=== PATIENT | female | born 1980 | race Caucasian/White ===

== ENCOUNTER → 2024-05-12 11:57 | Outpatient (BNVA) | payer OTHER, SELFPAY | PROVIDERS: PCP Registered Nurse; Visit Provider Registered Nurse | DX: Z13.6 Encounter for screening for cardiovascular disorders (principal); R10.9 Unspecified abdominal pain | CPT/HCPCS: 80053; 80061; 85025; 86003; 86008 ==

== ENCOUNTER 2024-05-30 10:20 | Outpatient (CLI) | payer OTHER, SELFPAY ==
--- NOTE | 2024-05-30 11:00 | US_ITS ---
WS: [id number] RIGHT UPPER QUADRANT ULTRASOUND HISTORY: K81.9 - Cholecystitis, unspecified COMPARISON: None available. Liver: 14.8 cm in length. Normal size liver and echogenicity. No bile duct dilatation or mass. Portal Vein: Normal hepatopetal flow with monophasic waveform. Gallbladder: Normally distended gallbladder with no stones or wall thickening. CBD: 0.4 cm Pancreas: Poorly visualized due to bowel gas. Right kidney: 10.8 cm in length. Normal size and echogenicity. No hydronephrosis or mass. Aorta and IVC: Unremarkable abdominal aorta and IVC. No ascites. US/US gall bladder [id number] IMPRESSION: 1. Normal gallbladder. No cholelithiasis or wall thickening. 2. Normal common bile duct.
== END 2024-05-30 10:21 | disposition home or self-care (01) ==
LOC: RAD 10:21
PROVIDERS: PCP Registered Nurse; Visit Provider Registered Nurse
DX: K81.9 Cholecystitis, unspecified (principal)
CPT/HCPCS: 76705

== ENCOUNTER 2024-06-13 05:41 | Outpatient (CLI) | payer OTHER, SELFPAY ==
--- NOTE | 2024-06-13 06:00 | NM_ITS ---
WS: [id number] NUCLEAR MEDICINE HIDA SCAN WITH GALLBLADDER EJECTION FRACTION HISTORY: K82.8 - Other specified diseases of gallbladder COMPARISON: Gallbladder ultrasound 05/30/2024 TECHNIQUE: The patient was intravenously injected with 8.1 mCi of TC99m Mebrofenin. Immediate imaging over the right upper quadrant was followed by 5 minute image and additional images for a total of 60 minutes. Normal uptake of radiotracer throughout the liver. Activity identified in the gallbladder at 10 minutes and well distended by 60 minutes. Activity in the proximal small bowel was not evident at 60 minutes. During the gallbladder ejection f raction radionuclide is noted in the small bowel. Good washout of the radiotracer from the liver by 6 0 minutes. The patient then drank 8 ounces of Ensure Plus. Ejection fraction at 60 minutes was 31%. Normal GB ej ection fraction is 35-75%. Post fatty meal symptoms: None. NM/NM hepatobiliary w phar* [id number] IMPRESSION: 1. Normal filling of the gallbladder. Little radionuclide is noted in the smal l bowel at 60 minutes but there is radionuclide during the gallbladder ejection portion of the exam. 2. Abnormally low gallbladder ejection fraction. Gallbladder dyskinesia/chroni c cholecystitis is likely. Less likely due to obstruction of the common bile du ct. Common bile duct appeared normal on the prior ultrasound. Recommend surgical evaluation for possible cholecystectomy.
== END 2024-06-13 05:42 | disposition home or self-care (01) ==
LOC: RAD 05:42
PROVIDERS: PCP Registered Nurse; Visit Provider Registered Nurse
DX: K82.8 Other specified diseases of gallbladder (principal)
CPT/HCPCS: 78227; A9537

== ENCOUNTER 2024-06-30 08:30 | Day surgery (SDC) | payer OTHER, SELFPAY ==
[2024-06-30] VITALS (11 sets, daily range): BP systolic 106–162; BP diastolic 61–88; PULSE 79–95; RESP 13–20; TEMP 35.9–36.6; O2SAT 94–100; BMI 43.0
[2024-06-30 09:09] LABS: OR HCG Qualitative Urine Negative (Negative)
--- NOTE | 2024-06-30 09:13 | P.HPUD_ITS ---
Surgery/Procedure H&P Update DATE OF PROCEDURE: June 30, 2024 DATE H&P PERFORMED: 06/18/24 H&P UPDATE INFORMATION: I have reviewed H&P completed within last 30 days, I have examined patient prior to procedure, No changes to prior documentation and H&P is in [facility] [place] EMR on date indicated PLANNED PROCEDURE: Operation Date: 06/30/24 10:45 Proposed Procedures p lap possible open cholecystectomy 26729, K82.9(Not Applicable) - Terry Acuna MD
[2024-06-30] MEDS: scopolamine 1.5 Patch 1 PATCH TRANSDERMA (09:22)
[2024-06-30] MEDS: sodium chloride 0.9% 1,000 ML 30 ML IV (09:28)
--- NOTE | 2024-06-30 11:32 | ANES.PREANE2 ---
Pre-Anesthetic Assessment Height/Weight: Height 5 ft 6 in Weight 267 lb Temp Pulse Resp BP Pulse Ox O2 Del Method 97.8 F 95 16 136/88 98 Room Air 06/30/24 09:11 06/30/24 09:11 06/30/24 09:11 06/30/24 09:11 06/30/24 09:11 06/30/24 09:11 Preop Diagnosis: Chronic cholecystitis Operation Date: 06/30/24 10:45 Proposed Procedures p lap possible open cholecystectomy 92093, K82.9(Not Applicable) - Terry Acuna MD Was Beta Brian taken within 24 hours: N/A Was Clonidine taken within 24 hours: N/A Last intake: Intake Last Liquid Date 06/29/24 Last Liquid Time 20:00 Last Solid Date 06/29/24 Last Solid Time 16:00 Social No alcohol and No tobacco Exam alert, oriented x 3, clear to auscultation bilaterally and regular rate & rhythm Airway Submandibular: within normal limits Cervical ROM: within normal limits Mallampati: Class I Dentition: full Comments: Comments: Large overbite Anesthetic Plan ASA status: 3 Anesthesia: General Other: Patient states that she nauseous after a surgery when she she was 11 years old NPO since yesterday BMI 43 History of hypertension on lisinopril?HCTZ Denies any pulmonary issues METs greater than 4 Labs reviewed from 05/12/2024 and acceptable for procedure Plan for GETA Medications/Allergies Home Medications Medication Instructions Recorded Confirmed Last Taken Type lisinopril 10 1 tab PO DAILY 06/30/24 06/30/24 06/25/24 History mg-hydrochlorothiazide 12.5 mg tablet Allergies Allergy/AdvReac Type Severity Reaction Status Date / Time No Known Allergies Allergy Verified 06/30/24 09:06 Current Medications Generic Name Dose Route Start Last Admin Trade Name Freq PRN Reason Stop Dose Admin Sodium Chloride 1,000 mls @ 30 mls/hr 06/30/24 09:00 06/30/24 09:28 Sodium Chloride 0.9% IV 07/01/24 08:59 30 mls/hr .Q24H LOUIS Administration PFSH Anesthesia Medical History (Updated 06/13/24 @ 15:12 by KHADIJAH Marie) Essential hypertension Social History (Reviewed 05/12/24 @ 10:06 by JOHN Carr Smoking and tobacco/nicotine status: never used tobacco/nicotine Alcohol intake: never Substance/Drug Use: never Adopted: No Caregiver/support person: No Lives independently: No service: No Current occupational status: employed Sexually active: Yes Current gender identity: Female Data Anesthesia Cardiac Studies: No Data to Display
[2024-06-30] MEDS: ceFAZolin 3,000 MG in sodium chloride 0.9% (plus) 100 ML 200 MG IV (12:22)
[2024-06-30] MEDS: BUPivacaine 0.25% INJ 10 mL INJECTION (12:55)
[2024-06-30] MEDS: lidocaine-epi 1% 20 mL INJ INJECTION (12:55)
--- NOTE | 2024-06-30 13:50 | P.OP_ITS ---
Operative Report Date of procedure: June 30, 2024 Pre-op diagnosis: Gallbladder dyskinesia Post-op diagnosis: Chronic cholecystitis and gallbladder dyskinesia Post-op findings: The gallbladder was wrapped in omentum, there was some chronic inflammation at the level of the hepatocystic triangle. Procedure done: Laparoscopic cholecystectomy Specimens removed/disposition: Gallbladder Surgeon: Terry Acuna MD Household Appliance Installer: MENDY OR Staff Estimated blood loss: 5 Complications: none Brief History: This is a 44-year-old female who presents to my clinic for biliary dyskinesia, after discussion of all risk benefits documented my preop note we decided to proceed to the OR for laparoscopic cholecystectomy. Procedure: Patient was brought into the OR, she was placed in a supine position. General anesthesia was given. The abdomen was prepped and draped in usual sterile fashion. Timeout was conducted. The abdomen was accessed with a 5 mm Optiview trocar in the left upper quadrant, initial pneumoperitoneum was achieved and no evidence of visceral injury during entry was noted. Additional 12 mm trocar was placed in the supraumbilical position under direct visualization. 5 mm trocars were placed in the right upper quadrant right flank and epigastrium under direct visualization. The patient was placed in steep reverse Trendelenburg position with the left side down. The gallbladder was grasped from the fundus and retracted cephalad, there was significant adhesions from the omentum encompassing the whole circumference of the gallbladder, with careful electrocautery dissection I was able to take down both adhesions until the infundibulum of the gallbladder was visualized. I then grasped the infundibulum and retracted in the inferolateral direction, the peritoneum anterior to the hepatocystic triangle was then opened with electrocautery, this opening was carried in the medial and lateral direction to the edges of the liver and then on the sides of the gallbladder to allow for better exposure. With careful blunt dissection and electrocautery I was able to encircle the cystic duct, the cystic artery and I was able to elevate the lower third of the gallbladder from the cystic plate, thus creating a critical view of safety. The cystic duct and artery were double clipped proximal single clipped distally and transected. The gallbladder was removed from the liver bed using electrocautery. After removal of the gallbladder the liver bed appeared hemostatic and no evidence of bile leak was noted. The specimen was retrieved through the supraumbilical trocar site in an Endo Catch bag. This trocar site was then closed using a Bert- Raisa suture passer and a 0 Vicryl under direct visualization. The epigastrium right upper quadrant right flank trocars were removed under direct visualization, the left upper quadrant trocar was used to acquire the pneumoperitoneum and subsequently removed. Local anesthesia was infiltrated in all the wounds, the wounds were closed in layers using #3-0 Vicryl for the subcutaneous tissue and #4 Monocryl for the skin. At the end of the procedure Dermabond was applied. At the end of the procedure counts were correct, the patient tolerated well the procedure was transferred to the PACU in stable condition.
--- NOTE | 2024-06-30 15:25 | ANE.PACU2 ---
Inpatient post-anesthesia follow up: Airway intact: Yes Vital signs: Temperature 97.6 F Pulse Rate 79 Respiratory Rate 16 Blood Pressure 108/61 Pulse Oximetry 99 Oxygen Delivery Me thod Room Air Oxygen Flow Rate Fraction of Inspir ed Oxygen Hydration adequate: Yes Nausea and vomiting: No Pain level: 1 Mental status: Baseline
== END 2024-06-30 15:25 | disposition home or self-care (01) ==
PROVIDERS: Student in an Organized Health Care Education/Training Program; PCP Registered Nurse; Visit Provider Surgery
PROC: 0FT44ZZ Resection of Gallbladder, Percutaneous Endoscopic Approach (ICD-10-PCS; CPT 47562; principal; 2024-06-30 10:35)
DX: K82.4 Cholesterolosis of gallbladder (principal); I10 Essential (primary) hypertension
CPT/HCPCS: 47562; 81025; 88304; J0690; J1100; J1885; J2405; J2704; J3010; J3490; J7030

== ENCOUNTER 2024-08-06 08:58 | Outpatient (CLI) | payer OTHER, SELFPAY ==
--- NOTE | 2024-08-06 09:00 | MM_ITS ---
WS: [id number] SCREENING DIGITAL TOMOSYNTHESIS MAMMOGRAM WITH CAD HISTORY: Z12.31 - Encounter for screening mammogram for malignant ... COMPARISON: None available. Bilateral CC and MLO with tomosynthesis views submitted. Synthetic mammography reviewed. Computer aid ed detection analyzed. Breast composition: The breasts are almost entirely fatty. No suspicious masses, microcalcifications or architectural distortion. MM/MM scr BI tomosynthesis [id number] IMPRESSION: BI-RADS: 1 - Negative. FOLLOW UP: 1 Year Follow-up
== END 2024-08-06 08:59 | disposition home or self-care (01) ==
LOC: MOBLMAM 09:03
PROVIDERS: PCP Registered Nurse; Visit Provider Registered Nurse
DX: Z12.31 Encounter for screening mammogram for malignant neoplasm of breast (principal); R92.313 Mammographic fatty tissue density, bilateral breasts
CPT/HCPCS: 77063; 77067